=== PATIENT | male | born 1950 | race Caucasian/White ===

== ENCOUNTER 2018-06-17 09:49 | Day surgery (SDC) | payer MEDICARE, OTHER ==
[2018-06-16 15:07] VITALS: BP 72/59
[2018-06-16 15:39] LABS: BASOPHILS % (AUTO) 0.6 % (0.0-5.0); EOSINOPHILS % (AUTO) 1.8 % (0.0-8.0); HEMATOCRIT 35.8 % (42-54); LYMPHOCYTES % (AUTO) 18.6 % (21.0-51.0); MEAN CORPUSCULAR HEMOGLOBIN 34.2 pg (27.0-33.0); MEAN CORPUSCULAR HGB CONC 33.7 g/dL (32.0-36.0); MEAN CORPUSCULAR VOLUME 101.4 fL (79-99); MONOCYTES % (AUTO) 6.1 % (3.0-13.0); NEUTROPHILS % (AUTO) 72.9 % (40.0-77.0); NUCLEATED RED BLOOD CELLS 0.1 % (0.0-0.19); PLATELET COUNT (AUTO) 193 K/uL (130-400); RED BLOOD CELL COUNT(AUTO) 3.53 MIL/uL (4.50-6.20); RED CELL DISTRIBUTION WIDTH 13.6 % (11.0-15.5); WHITE BLOOD COUNT (AUTO) 6.5 K/uL (4.8-10.8)
[2018-06-16 16:00] VITALS: BP 106/63
--- NOTE | 2018-06-16 16:06 | NUR ---
PATIENT STATED THAT HE WAS NOT GOING TO TAKE ANY MEDICATION IN THE MORNING
[2018-06-16 16:21] LABS: CREATININE 1.3 mg/dL (0.5-1.5); POTASSIUM 3.4 mmol/L (3.5-5.1)
--- NOTE | 2018-06-16 16:54 | NUR ---
NOTE REPORTED K+ TO DR OLIVO NO FURTHER ORDER GIVEN
[2018-06-17] VITALS (13 sets, daily range): BP systolic 91–108; BP diastolic 59–75
[~2018-06-17] VITALS: Ht 170.2 cm; Wt 63.0 kg
[~2018-06-17 09:49] MED LIST: AEC81 PO; AMLO1TAB15 PO; AMLO5TAB9 PO; ASHWAGANDHA PO; CALC-190 PO; CEFTRIAXONE SODIUM 1 GM IM SCH; CYAN-35 PO; ESCI20TA36 PO; FISH1CAP49 PO; MULT1TAB70 PO; POTA-79 PO; SODI650T PO; ST.300TA3 PO; TURM500C9 PO; VITA400C73 PO; [UNRECOGNIZED DRUG - OTHER] PO; iron PO; vitamin d3 PO
[2018-06-17] MEDS ORDERED: LACTATED RINGERS 1000ML 1,000 ML IV ONE (10:24)
[2018-06-17] MEDS ORDERED: LIDOCAINE PF 2% 5ML ABBOJECT ONE (10:59)
[2018-06-17] MEDS ORDERED: PROPOFOL 10 MG/ML 20ML VIAL IV ONE (11:00)
[2018-06-17] MEDS ORDERED: FENTANYL CITRATE PF 50 MCG/1 ML 2ML VIAL ONE (11:00)
[2018-06-17] MEDS ORDERED: PHENYLEPHRINE HCL 10 MG/ML 1ML VIAL IV ONE (11:15)
[2018-06-17] MEDS ORDERED: SODIUM CHLORIDE 0.9% 10 ML VIAL ONE (11:15)
[2018-06-17] MEDS ORDERED: PHENAZOPYRIDINE HCL 200 MG TABLET ONE (12:38)
== END 2018-06-17 13:30 | disposition home or self-care (01) ==
LOC: DAH 09:49
PROVIDERS: ATTEND Urology
DX: N21.1 Calculus in urethra (principal); N20.0 Calculus of kidney; R31.9 Hematuria, unspecified; R33.9 Retention of urine, unspecified; Z98.890 Other specified postprocedural states; Z79.899 Other long term (current) drug therapy; Z88.8 Allergy status to other drugs, medicaments and biological substances; I10 Essential (primary) hypertension; K21.9 Gastro-esophageal reflux disease without esophagitis; N21.0 Calculus in bladder
CPT/HCPCS: 36415; 52310; 80048; 85025; 93005; A4218; A4344; A4358; A4510; A4600; A4930; A5113; J0696; J2001; J2370; J2704; J3010; J7120 ×2

== ENCOUNTER → 2018-08-03 | Outpatient (CLI) | payer OTHER ==
[~2018-08-03] MED LIST changes: -AEC81 PO; -CEFTRIAXONE SODIUM 1 GM IM SCH; -FISH1CAP49 PO; +IOHEXOL-350 75 ML VIAL IV ONE; -VITA400C73 PO
== END | disposition home or self-care (01) ==
LOC: RAH 07:43
PROVIDERS: ATTEND Urology
DX: N20.0 Calculus of kidney (principal); N28.1 Cyst of kidney, acquired; M47.816 Spondylosis without myelopathy or radiculopathy, lumbar region
CPT/HCPCS: 74178; Q9967

== ENCOUNTER → 2019-02-24 | Outpatient (CLI) | payer OTHER ==
[~2019-02-24] MED LIST changes: -IOHEXOL-350 75 ML VIAL IV ONE
== END | disposition home or self-care (01) ==
LOC: RAH 14:28
PROVIDERS: ATTEND Urology
DX: N28.1 Cyst of kidney, acquired (principal); N28.89 Other specified disorders of kidney and ureter
CPT/HCPCS: 76770

== ENCOUNTER → 2019-06-07 | Outpatient (CLI) | payer OTHER | END | disposition home or self-care (01) | LOC: OIH 14:49 | PROVIDERS: ATTEND Internal Medicine Cardiovascular Disease | DX: Z13.6 Encounter for screening for cardiovascular disorders (principal); I71.2 Thoracic aortic aneurysm, without rupture | CPT/HCPCS: 75571 ==

== ENCOUNTER → 2019-06-07 | Outpatient (CLI) | payer OTHER | END | disposition home or self-care (01) | LOC: SHCH 14:46 | PROVIDERS: ATTEND Internal Medicine Cardiovascular Disease | DX: I10 Essential (primary) hypertension (principal) | CPT/HCPCS: 93306; 93356 ==

== ENCOUNTER → 2019-10-12 | Outpatient (CLI) | payer OTHER ==
[~2019-10-12] MED LIST changes: +MULT-660 PO; -MULT1TAB70 PO
== END | disposition home or self-care (01) ==
LOC: RAH 12:58
PROVIDERS: ATTEND Urology
DX: N20.0 Calculus of kidney (principal); N28.1 Cyst of kidney, acquired
CPT/HCPCS: 76770

== ENCOUNTER 2020-11-29 05:35 | Day surgery (SDC) | payer MEDICARE ==
[2020-11-26 09:26] VITALS: BP 102/72
[2020-11-26 12:57] LABS: BASOPHILS % (AUTO) 0.6 % (0.0-5.0); EOSINOPHILS % (AUTO) 2.9 % (0.0-8.0); HEMATOCRIT 38.5 % (42-54); MEAN CORPUSCULAR HEMOGLOBIN 33.8 pg (27.0-33.0); MEAN CORPUSCULAR HGB CONC 32.2 g/dL (32.0-36.0); MEAN CORPUSCULAR VOLUME 104.9 fL (79-99); MONOCYTES % (AUTO) 8.2 % (3.0-13.0); NEUTROPHILS % (AUTO) 65.1 % (40.0-77.0); PLATELET COUNT (AUTO) 198 K/uL (130-400); RED BLOOD CELL COUNT(AUTO) 3.67 MIL/uL (4.50-6.20); RED CELL DISTRIBUTION WIDTH 13.7 % (11.0-15.5); WHITE BLOOD COUNT (AUTO) 6.5 K/uL (4.8-10.8)
[~2020-11-29] VITALS: Ht 172.7 cm; Wt 64.6 kg
[2020-11-29] VITALS (15 sets, daily range): BP systolic 86–114; BP diastolic 52–77
[~2020-11-29 05:35] MED LIST changes: +AMIL5TAB8 PO; -AMLO5TAB9 PO; -ESCI20TA36 PO; +ESCI20TA38 PO; -TURM500C9 PO
[2020-11-29] MEDS ORDERED: LACTATED RINGERS 1000ML 1,000 ML IV ONE (06:45)
[2020-11-29] MEDS: CEFTRIAXONE 1G VIAL IVP ONE ×2 (06:53→08:20)
[2020-11-29] MEDS ORDERED: GLYCOPYRROLATE 1 MG/5 ML SYRINGE ONE (07:46)
[2020-11-29] MEDS ORDERED: PROPOFOL 10 MG/ML 20ML VIAL IV ONE (07:46)
[2020-11-29] MEDS ORDERED: ONDANSETRON 4MG INJ ONE (07:46)
[2020-11-29] MEDS ORDERED: LIDOCAINE PF 100MG/5ML (2%) SYRINGE 5ML ONE (07:46)
[2020-11-29] MEDS ORDERED: SUCCINYLCHOLINE 200MG/10ML SYR ONE (07:46)
[2020-11-29] MEDS ORDERED: NEOSTIGMINE 5MG/5ML SYR IV ONE (07:46)
[2020-11-29] MEDS ORDERED: DEXAMETHASONE SOD PHOSPHATE 10MG/ML 1ML VIAL ONE (07:46)
[2020-11-29] MEDS ORDERED: ROCURONIUM 10MG/1ML SYR 10 MG/ML ML ONE (07:46)
[2020-11-29] MEDS ORDERED: FENTANYL CITRATE PF 50 MCG/1 ML 2ML VIAL ONE (07:47)
[2020-11-29] MEDS ORDERED: LIDOCAINE HCL 2% PF 20 ML JEL DISP.SYRIN MM ONE ×2 (08:05→08:28)
[2020-11-29] MEDS ORDERED: MIDAZOLAM HCL 1 MG/ML 2ML VIAL ONE (08:21)
== END 2020-11-29 10:10 | disposition home or self-care (01) ==
LOC: DAH 05:35
PROVIDERS: ATTEND Urology
DX: R97.20 Elevated prostate specific antigen [PSA] (principal); Z20.822 Contact with and (suspected) exposure to COVID-19; I10 Essential (primary) hypertension; K21.9 Gastro-esophageal reflux disease without esophagitis; Z98.84 Bariatric surgery status; Z98.890 Other specified postprocedural states; Z91.013 Allergy to seafood; Z87.442 Personal history of urinary calculi
CPT/HCPCS: 36415; 55700; 76872; 80048; 85025; 87426; 88305; 88341; 88342; 93005; A4215 ×2; A4221; A4222; A4223; A4600 ×2; A4657; A4663; J0330; J0696; J1100; J2001; J2250; J2405; J2704; J2710; J3010; J3490; J7120; 76942

== ENCOUNTER → 2023-02-12 | Outpatient (CLI) | payer SELFPAY ==
[~2023-02-12] MED LIST changes: +POTA-364 PO; -POTA-79 PO; -ST.300TA3 PO; +[UNRECOGNIZED DRUG - CODE] PO
== END | disposition home or self-care (01) ==
LOC: RAH 08:51
PROVIDERS: ATTEND Internal Medicine Cardiovascular Disease
DX: Z13.6 Encounter for screening for cardiovascular disorders (principal); R93.1 Abnormal findings on diagnostic imaging of heart and coronary circulation
CPT/HCPCS: 75571

== ENCOUNTER → 2023-02-27 | Outpatient (CLI) | payer MEDICARE | END | disposition home or self-care (01) | LOC: SHCH 10:33 | PROVIDERS: ATTEND Internal Medicine Cardiovascular Disease | DX: I70.203 Unspecified atherosclerosis of native arteries of extremities, bilateral legs (principal); I10 Essential (primary) hypertension | CPT/HCPCS: 93925 ==

== ENCOUNTER → 2024-05-24 | Outpatient (CLI) | payer MEDICARE ==
[~2024-05-24] MED LIST changes: +IOHEXOL 350 MG/ML 100ML INFUS..BTL IV ONE; +metoPROLOL tartRATE 1 MG/ML 5ML VIAL IV ONE
--- NOTE | 2024-05-24 11:10 | HMCIMG ---
CT CARDIAC ANGIO W/CONT. CCTA HISTORY: Atherosclerotic heart disease COMPARISON: None TECHNIQUE: Multiple sequential axial images of the chest were obtained along with the CT angiogram of the chest study. Patient was given 100 cc of Omnipaque through intravenous route. FINDINGS: There is no evidence of pulmonary nodule or parenchymal disease. No pleural effusion or pericardial effusion is seen. There is no evidence of pneumothorax. There are normal size mediastinal and hilar lymph nodes. The heart is not enlarged. COPD changes are seen. Degenerative changes of the thoracolumbar spine are present. IMPRESSION: 1. No evidence of pulmonary nodule or effusion is seen. Please see CT angiogram report of coronary arteries.
== END | disposition home or self-care (01) ==
LOC: RAH 08:06
PROVIDERS: ATTEND Internal Medicine Cardiovascular Disease
DX: I25.10 Atherosclerotic heart disease of native coronary artery without angina pectoris (principal); J44.9 Chronic obstructive pulmonary disease, unspecified; M47.815 Spondylosis without myelopathy or radiculopathy, thoracolumbar region
CPT/HCPCS: 75574; J3490; Q9967